=== PATIENT | male | born 1990 | race African-American/Black ===

== ENCOUNTER 2018-09-30 09:15 | Emergency (ER) | payer OTHER ==
[~2018-09-30] VITALS: Ht 157.5 cm; Wt 65.0 kg
[2018-09-30] MEDS ORDERED: muscle relaxer (09:22)
[2018-09-30] MEDS ORDERED: KETOROLAC TROMETHAMINE 10 MG TAB PO ONE (10:00)
--- NOTE | 2018-09-30 10:17 | REP ---
CT thoracic spine without contrast. HISTORY: Back pain COMPARISON : None There is no acute fracture or subluxation. There is no disc bulge or herniation. The spinal canal and neural foramina are patent. The intervertebral discs and vertebral bodies are normal in height. IMPRESSION: There is no acute fracture or subluxation. Electronically Signed by Corey Meraz MD 09/30/2018 10:09 A
[2018-09-30] MEDS ORDERED: KETO10TAB PO (10:22)
--- NOTE | 2018-09-30 10:33 | REP ---
Chest two views HISTORY: Shortness of breath Comparison: None The lungs are clear. The heart is normal in size. The pulmonary vasculature is normal in appearance. The bony structure is intact. IMPRESSION: No acute disease. Electronically Signed by Corey Meraz MD 09/30/2018 10:25 A
[2018-09-30 10:36] VITALS: BP 112/68
== END 2018-09-30 10:37 | disposition home or self-care (01) ==
LOC: M ED 09:15
DX: G89.29 Other chronic pain (principal); M54.6 Pain in thoracic spine; R06.02 Shortness of breath